=== PATIENT | female | born 1945 | race Caucasian/White ===

== ENCOUNTER → 2018-07-30 12:04 | Outpatient (CLI) | payer MEDICARE, OTHER, SELFPAY ==
[2018-07-30 12:47] LABS: BUN Creatinine Ratio 15.9 (6-22); Blood Urea Nitrogen 27 mg/dL (7-17); Calcium 9.3 mg/dL (8.4-10.2); Carbon Dioxide 25 mmol/L (22-32); Chloride 102 mmol/L (98-107); Cholesterol 187 mg/dL (140-199); Estimated Glomerular Filt Rate 29.4 mL/min (>60); Glucose 104 mg/dL (80-110); HDL Cholesterol 50 mg/dL (40-60); HEMOLYSIS < 15 (0-50); LDL Cholesterol Calculated 116 mg/dL (<100); Potassium 3.9 mmol/L (3.4-5.1); Sodium 141 mmol/L (137-145); Triglycerides 107 mg/dL (35-150); Uric Acid 5.7 mg/dL (2.5-6.2)
== END ==
PROVIDERS: PCP Internal Medicine; Visit Provider Internal Medicine
DX: I10 Essential (primary) hypertension (principal); E78.5 Hyperlipidemia, unspecified; M10.00 Idiopathic gout, unspecified site
CPT/HCPCS: 36415; 80048; 80061; 84550

== ENCOUNTER → 2018-08-06 10:09 | Outpatient (CLI) | payer MEDICARE, OTHER, SELFPAY ==
--- NOTE | 2018-08-06 | DI.RAD.S_ITS ---
PROCEDURE: XR LUMBAR SPINE 2-3V INDICATIONS: Dorsalgia, unspecified TECHNIQUE: 3 views of the lumbar spine were acquired. COMPARISON: [facility], , L-SPINE 2-3 VIEWS, 06/11/2017, 12:19. FINDINGS: Bones: Mild anterior wedging of the L1 vertebral body otherwise the vertebral body heights appear preserved without evidence of acute fracture. Diffuse facet arthropathy and moderate multilevel lumbar disc degeneration. Extensive endplate spurring and sclerosis. Soft tissues: Overlying bowel gas pattern is normal. No suspicious soft tissue calcifications. Scattered vascular calcifications IMPRESSION: Diffuse lumbar disc degeneration and facet arthropathy. No interval change since 09/11/16. Dictated by: Abiodun Thomason M.D. on 08/06/2018 at 11:40 Approved by: Abiodun Thomason M.D. on 08/06/2018 at 11:42
--- NOTE | 2018-08-06 | DI.RAD.S_ITS ---
PROCEDURE: XR THORACIC SPINE 3V INDICATIONS: Dorsalgia, unspecified TECHNIQUE: 3 views of the thoracic spine were acquired. COMPARISON: [facility], , THORACIC SPINE 3 VIEWS, 06/11/2017, 12:19. FINDINGS: Bones: No fractures or dislocations. No suspicious bony lesions. Diffuse endplate degenerative sclerosis and spurring. Levocurvature of the thoracic spine as before. Unchanged appearance of lower thoracic compression fracture. Soft tissues: No paravertebral stripe thickening. IMPRESSION: Overall, no interval change since 06/11/17. Levoscoliosis as before. Dictated by: Abiodun Thomason M.D. on 08/06/2018 at 11:38 Approved by: Abiodun Thomason M.D. on 08/06/2018 at 11:40
--- NOTE | 2018-08-06 | DI.RAD.S_ITS ---
PROCEDURE: XR CERVICAL SPINE 2V OR 3V INDICATIONS: Dorsalgia, unspecified TECHNIQUE: 4 view(s) of the cervical spine were acquired. COMPARISON: [facility], CERVICAL SPINE 2 OR 3 VIEWS, 06/11/2017, 12:19. FINDINGS: Bones: No fractures or dislocations to the C6 level. The lateral masses of C1 appear intact on the odontoid view. No suspicious bony lesions. Grade 1 anterolisthesis of C3 on C4 and C4 and C5. Diffuse facet arthropathy. Moderate narrowing of the C4-C5 and C5-C6 disc spaces. Severe narrowing of the C6-C7 disc space. Straightening of the normal cervical lordosis Soft tissues: No prevertebral soft tissue swelling. Bilateral carotid calcifications. IMPRESSION: Multilevel cervical disc degeneration as detailed above, no interval change since 06/11/17. Dictated by: Abiodun Thomason M.D. on 08/06/2018 at 11:36 Approved by: Abiodun Thomason M.D. on 08/06/2018 at 11:38
== END ==
PROVIDERS: Family Provider Internal Medicine; PCP Internal Medicine; Visit Provider Internal Medicine
DX: M54.9 Dorsalgia, unspecified (principal); M50.321 Other cervical disc degeneration at C4-C5 level; I65.23 Occlusion and stenosis of bilateral carotid arteries; M43.12 Spondylolisthesis, cervical region; M48.02 Spinal stenosis, cervical region; M47.812 Spondylosis without myelopathy or radiculopathy, cervical region; M41.84 Other forms of scoliosis, thoracic region; M51.36 Other intervertebral disc degeneration, lumbar region; M47.816 Spondylosis without myelopathy or radiculopathy, lumbar region
CPT/HCPCS: 72040; 72072; 72100

== ENCOUNTER → 2018-10-09 11:27 | Outpatient (CLI) | payer MEDICARE, OTHER, SELFPAY ==
[2018-10-09 11:33] LABS: Bacteria Urine None Seen
[2018-10-09 12:28] LABS: Hematocrit 41.7 % (36-46)
[2018-10-09 12:45] LABS: BUN Creatinine Ratio 19.4 (6-22); Blood Urea Nitrogen 33 mg/dL (7-17); Calcium 9.4 mg/dL (8.4-10.2); Carbon Dioxide 26 mmol/L (22-32); Chloride 96 mmol/L (98-107); Estimated Glomerular Filt Rate 29.4 mL/min (>60); Glucose 103 mg/dL (80-110); HEMOLYSIS < 15 (0-50); Potassium 3.7 mmol/L (3.4-5.1); Sodium 133 mmol/L (137-145)
[2018-10-09 12:47] LABS: Appearance Urine UA CLEAR; Bilirubin Urine UA NEGATIVE (NEGATIVE); Color Urine UA YELLOW; Glucose Urine UA NEGATIVE (Negative); Ketones Urine UA NEGATIVE (NEGATIVE); Leukocyte Esterase Urine UA NEGATIVE (NEGATIVE); Nitrite Urine UA NEGATIVE (Negative); Occult Blood Urine UA TRACE-INTACT (Negative); Protein Urine UA NEGATIVE (Negative); Specific Gravity Urine UA <=1.005 (1.000-1.035); Urobilinogen Urine UA 0.2 E.U./dL (0.2)
[2018-10-09 12:52] LABS: HEMOLYSIS < 15 (0-50); Iron 65 ug/dL (37-170)
[2018-10-09 13:03] LABS: Percent Iron Saturation 20 % (15-50); Total Iron Binding Capacity 322 ug/dL (265-497); Transferrin 246 mg/dL (206-381)
[2018-10-09 13:07] LABS: Culture Indicated Urine Cult Not Indicated; RBC Urine 0-1/HPF (0-5/HPF); Squamous Epithelial Cell Urine 1-5 /HPF; WBC Urine 0-1/HPF (0-5/HPF)
[2018-10-09 13:17] LABS: Ferritin 31.8 ng/mL (11.1-264)
[2018-10-09 14:56] LABS: Creatinine Urine Random 41.8 mg/dL; Protein (Total) Urine Random 38 mg/dL (0-12)
[2018-10-13 14:08] LABS: Parathyroid Hormone Int 114 pg/mL (14-64)
== END ==
PROVIDERS: Family Provider Internal Medicine; Visit Provider Student in an Organized Health Care Education/Training Program
DX: N05.9 Unspecified nephritic syndrome with unspecified morphologic changes (principal); D50.0 Iron deficiency anemia secondary to blood loss (chronic); D64.9 Anemia, unspecified; N30.00 Acute cystitis without hematuria; R80.9 Proteinuria, unspecified
CPT/HCPCS: 36415; 80048; 81001; 82570; 82728; 83540; 83550; 83970; 84156; 85014; 85018

== ENCOUNTER → 2018-11-05 12:18 | Outpatient (CLI) | payer MEDICARE, OTHER, SELFPAY ==
[2018-11-05 12:31] LABS: Bacteria Urine None Seen; RBC Urine None Seen (0-5/HPF)
[2018-11-05 12:47] LABS: Hematocrit 38.6 % (36-46); Hemoglobin 12.9 g/dL (12.0-16.0)
[2018-11-05 12:51] LABS: Appearance Urine UA CLEAR; Bilirubin Urine UA NEGATIVE (NEGATIVE); Color Urine UA YELLOW; Glucose Urine UA NEGATIVE (Negative); Ketones Urine UA NEGATIVE (NEGATIVE); Leukocyte Esterase Urine UA NEGATIVE (NEGATIVE); Nitrite Urine UA NEGATIVE (Negative); Occult Blood Urine UA NEGATIVE (Negative); Protein Urine UA NEGATIVE (Negative); Specific Gravity Urine UA <=1.005 (1.000-1.035); Urobilinogen Urine UA 0.2 E.U./dL (0.2); pH Urine UA 5.5 (4.5-8.0)
[2018-11-05 12:59] LABS: Culture Indicated Urine Cult Not Indicated; Squamous Epithelial Cell Urine 0-1 /HPF; WBC Urine 0-1/HPF (0-5/HPF)
[2018-11-05 13:00] LABS: BUN Creatinine Ratio 19.5 (6-22); Blood Urea Nitrogen 39 mg/dL (7-17); Calcium 9.2 mg/dL (8.4-10.2); Carbon Dioxide 26 mmol/L (22-32); Chloride 98 mmol/L (98-107); Estimated Glomerular Filt Rate 24.4 mL/min (>60); Glucose 102 mg/dL (80-110); HEMOLYSIS < 15 (0-50); Potassium 4.1 mmol/L (3.4-5.1); Sodium 134 mmol/L (137-145)
[2018-11-05 13:13] LABS: HEMOLYSIS < 15 (0-50); Iron 106 ug/dL (37-170)
[2018-11-05 13:24] LABS: Percent Iron Saturation 34 % (15-50); Total Iron Binding Capacity 311 ug/dL (265-497); Transferrin 235 mg/dL (206-381)
[2018-11-05 15:42] LABS: Creatinine Urine Random 35.1 mg/dL; Protein (Total) Urine Random 18 mg/dL (0-12); Protein Creatinine Ratio Urine 0.51 GRAM/24H
[2018-11-07 20:10] LABS: Parathyroid Hormone Int 57 pg/mL (14-64)
== END ==
PROVIDERS: Family Provider Internal Medicine; PCP Internal Medicine; Visit Provider Student in an Organized Health Care Education/Training Program
DX: N05.9 Unspecified nephritic syndrome with unspecified morphologic changes (principal); D50.0 Iron deficiency anemia secondary to blood loss (chronic); D64.9 Anemia, unspecified; N30.00 Acute cystitis without hematuria; N25.81 Secondary hyperparathyroidism of renal origin; R80.9 Proteinuria, unspecified
CPT/HCPCS: 36415; 80048; 81001; 82570; 82728; 83540; 83550; 83970; 84156; 85014; 85018

== ENCOUNTER → 2019-01-19 12:25 | Outpatient (CLI) | payer MEDICARE, OTHER, SELFPAY ==
[2019-01-19 14:05] LABS: Add Manual Diff / Slide Review NO; Basophils Absolute Auto 0 /uL (0-100); Basophils Percent Auto 0.7 % (0-2); Eosinophils Absolute Auto 100 /uL (0-450); Eosinophils Percent Auto 1.6 % (2-4); Hematocrit 38.1 % (36-46); Hemoglobin 12.9 g/dL (12.0-16.0); Lymphocytes Absolute Auto 1300 /uL (1100-4500); Lymphocytes Percent Auto 20.7 % (25-40); Mean Corpuscular HGB Conc 33.8 % (30-36); Mean Corpuscular Hemoglobin 32.3 PG (26-34); Mean Corpuscular Volume 95.5 fL (80-100); Monocytes Absolute Auto 400 /uL (0-900); Monocytes Percent Auto 6.9 % (3-14); Neutrophils Absolute Auto 4300 /uL (1500-7000); Neutrophils Percent Auto 70.1 % (50-75); Platelet Count 152 X10^3/uL (150-400); Red Blood Cell Count 3.98 X10^6/uL (4.0-5.2); Red Cell Distribution Width 13.7 % (11.6-14.8); White Blood Cell Count 6.1 X10^3/uL (4.5-11.0)
[2019-01-19 15:43] LABS: Albumin 3.9 g/dL (3.5-5.0); BUN Creatinine Ratio 21.9 (6-22); Blood Urea Nitrogen 46 mg/dL (7-17); Calcium 9.2 mg/dL (8.4-10.2); Carbon Dioxide 27 mmol/L (22-32); Chloride 100 mmol/L (98-107); Glucose 103 mg/dL (80-110); HEMOLYSIS < 15 (0-50); Phosphorous 4.2 mg/dL (2.8-4.1); Potassium 3.7 mmol/L (3.4-5.1); Sodium 134 mmol/L (137-145)
== END ==
PROVIDERS: Family Provider Internal Medicine; PCP Internal Medicine; Visit Provider Student in an Organized Health Care Education/Training Program
DX: N18.4 Chronic kidney disease, stage 4 (severe) (principal); D63.1 Anemia in chronic kidney disease; E21.1 Secondary hyperparathyroidism, not elsewhere classified
CPT/HCPCS: 36415; 80069; 82310; 83970; 85025

== ENCOUNTER → 2019-04-21 11:40 | Outpatient (CLI) | payer MEDICARE, OTHER, SELFPAY ==
[2019-04-21 12:18] LABS: Hematocrit 39.5 % (36-46); Hemoglobin 13.5 g/dL (12.0-16.0)
[2019-04-21 12:52] LABS: BUN Creatinine Ratio 17.1 (6-22); Blood Urea Nitrogen 36 mg/dL (7-17); Calcium 9.9 mg/dL (8.4-10.2); Carbon Dioxide 27 mmol/L (22-32); Chloride 103 mmol/L (98-107); Glucose 105 mg/dL (80-110); HEMOLYSIS < 15 (0-50); Potassium 4.4 mmol/L (3.4-5.1); Sodium 140 mmol/L (137-145)
[2019-04-23 14:53] LABS: Parathyroid Hormone Int 42 pg/mL (14-64)
== END ==
PROVIDERS: PCP Internal Medicine; Visit Provider Student in an Organized Health Care Education/Training Program
DX: N05.9 Unspecified nephritic syndrome with unspecified morphologic changes (principal); D64.9 Anemia, unspecified; N25.81 Secondary hyperparathyroidism of renal origin
CPT/HCPCS: 36415; 80048; 83970; 85014; 85018

== ENCOUNTER → 2019-08-30 13:50 | Outpatient (CLI) | payer MEDICARE, OTHER, SELFPAY ==
[2019-08-30 16:06] LABS: BUN Creatinine Ratio 22.1 (6-22); Blood Urea Nitrogen 42 mg/dL (7-17); Calcium 9.9 mg/dL (8.4-10.2); Carbon Dioxide 29 mmol/L (22-32); Chloride 107 mmol/L (98-107); Cholesterol 204 mg/dL (140-199); Estimated Glomerular Filt Rate 25.8 mL/min (>60); Glucose 112 mg/dL (80-110); HDL Cholesterol 50 mg/dL (40-60); HEMOLYSIS < 15 (0-50); LDL Cholesterol Calculated 141 mg/dL (<100); Potassium 4.8 mmol/L (3.4-5.1); Sodium 141 mmol/L (137-145); Triglycerides 65 mg/dL (35-150); Uric Acid 6.7 mg/dL (2.5-6.2)
== END ==
PROVIDERS: PCP Internal Medicine; Visit Provider Internal Medicine
DX: I10 Essential (primary) hypertension (principal); E78.5 Hyperlipidemia, unspecified; M10.00 Idiopathic gout, unspecified site
CPT/HCPCS: 36415; 80048; 80061; 84550

== ENCOUNTER → 2019-09-09 09:11 | Outpatient (CLI) | payer MEDICARE, OTHER, SELFPAY ==
--- NOTE | 2019-09-09 | DI.ECHO.S_ITS ---
[facility]---------+ [facility] +---------+ : : [address] : : : : [id number] : : : : Phone: [phone] Echocardiogram Report + + :Name: MARISSA OWENS Study Date: 09/09/2019 Height: 67 in : :[facility] Weight: 180 lb : : Gender: Female BSA: 1.9 m2 : :: 1945 Age: 74 yrs BP: 166/82 mmHg: :Reason For Study: SOB : :Ordering Physician: Kathy JosephPerformed By: Sathya Ferrari : :Referring: KATHY JOSEPH : + + Interpretation Summary The septum is moderately thickened, measuring 1.6 cm. Left ventricular wall motion is normal. The left ventricular ejection fraction is normal. The right ventricle is normal in size and function. Pulmonary artery pressures cannot be estimated because of the lack of a measurable TR jet velocity. No hemodynamically significant valvular abnormalities. Patient was hypertensive during the exam. Procedure: A two-dimensional transthoracic echocardiogram with color flow and Doppler was performed. The study quality was technically adequate. There is no prior echocardiogram noted for this patient. The patient was in normal sinus rhythm during the exam. Left Ventricle: The left ventricle is normal in size. Proximal septal thickening is noted. The ejection fraction is estimated to be 60-65%. The left ventricular ejection fraction is normal. Left ventricular wall motion is normal. Diastolic parameters suggest probable normal left ventricular diastolic function and normal filling pressures. Right Ventricle: The right ventricle is normal in size and function. TAPSE 2.5 cm. Atria: The left atrial size is normal. Right atrial size is normal. There is no Doppler evidence for an interatrial shunt. Mitral Valve: The mitral valve is normal in structure and function. There is trace mitral regurgitation. Aortic Valve: There is mild aortic valve sclerosis. The aortic valve is trileaflet. The aortic valve opens well. There is discrete nodular thickening of the non- coronary cusp. There is no aortic valve stenosis. No aortic regurgitation is present. Tricuspid Valve: The tricuspid valve is normal in structure and function. No tricuspid regurgitation. Pulmonary artery pressures cannot be estimated because of the lack of a measurable TR jet velocity. Pulmonic Valve: The pulmonic valve is not well visualized. There is trace pulmonic regurgitation. Great Vessels: The aortic root is normal size. The dimensions of the ascending aorta are normal. The pulmonary artery is normal size. The IVC is of normal diameter and collapses greater than 50% with a sniff. This suggests a low right atrial pressure of 3 mm Hg. Pericardium/ Pleura There is no pericardial effusion. There is no pleural effusion. MMode/2D Measurements & Calculations LVIDd: 3.4 cm LVOT diam: 2.1 cm LVIDs: 2.4 cm Ao root diam: 3.1 cm FS: 29.8 % EPSS: 0.37 cm IVSd: 1.6 cm LVPWd: 1.2 cm LV vidal. diameter/BSA (cm/m^2): 1.7 LV sys. diameter/BSA (cm/m^2): 1.2 LA A2 area: 20.2 cm2 RA long axis: 4.9 cm LA A4 area: 19.0 cm2 RA area: 13.2 cm2 LA length (vol): 5.3 cm RA vol: 30.0 ml LA vol: 61.6 ml RA : 15.5 ml/m2 LA vol index: 31.8 ml/m2 TAPSE: 2.5 cm Doppler Measurements & Calculations Ao V2 max: 139.6 cm/sec LVOT Max Federico: 135.3 cm/sec Ao V2 mean: 106.4 cm/sec LV V1 max P.3 mmHg Ao max P.8 mmHg LV V1 VTI: 29.9 cm Ao mean P.9 mmHg MARY(I,D): 3.0 cm2 Ao V2 VTI: 36.0 cm MARY(V,D): 3.5 cm2 sev ratio: 0.83 MARY indexed to BSA (cm^2/m^2): 1.5 MV E max federico: 85.1 cm/sec PA V2 max: 50.5 cm/sec MV A max federioc: 60.5 cm/sec PA V2 mean: 36.4 cm/sec MV E/A: 1.4 PA mean P.61 mmHg Med Peak E' Federico: 6.9 cm/sec PA Accel Time: 0.13 sec E/E' med: 12.3 Lat Peak E' Federico: 6.6 cm/sec E/E' lat: 12.9 E/e' average: 12.6 MV dec time: 0.28 sec SV(LVOT): 107.4 ml Electronically signed by: Ministerio Hanson M.D. on Reading Physician:09/09/2019 06:56 PM
== END ==
PROVIDERS: PCP Internal Medicine; Visit Provider Internal Medicine
DX: I35.8 Other nonrheumatic aortic valve disorders (principal); R06.02 Shortness of breath
CPT/HCPCS: 93306

== ENCOUNTER → 2019-10-22 11:49 | Outpatient (CLI) | payer MEDICARE, OTHER, SELFPAY ==
[2019-10-22 12:43] LABS: Hematocrit 40.3 % (36-46); Hemoglobin 13.8 g/dL (12.0-16.0)
[2019-10-22 13:15] LABS: BUN Creatinine Ratio 17.9 (6-22); Blood Urea Nitrogen 34 mg/dL (7-17); Calcium 10.1 mg/dL (8.4-10.2); Carbon Dioxide 28 mmol/L (22-32); Chloride 106 mmol/L (98-107); Estimated Glomerular Filt Rate 25.8 mL/min (>60); Glucose 118 mg/dL (80-110); HEMOLYSIS < 15 (0-50); Potassium 4.5 mmol/L (3.4-5.1); Sodium 142 mmol/L (137-145)
[2019-10-26 15:37] LABS: Parathyroid Hormone Int 19 pg/mL (14-64)
== END ==
PROVIDERS: PCP Internal Medicine; Referring Provider Student in an Organized Health Care Education/Training Program; Visit Provider Student in an Organized Health Care Education/Training Program
DX: N05.9 Unspecified nephritic syndrome with unspecified morphologic changes (principal); D64.9 Anemia, unspecified; N25.81 Secondary hyperparathyroidism of renal origin
CPT/HCPCS: 36415; 80048; 83970; 85014; 85018

== ENCOUNTER → 2020-06-14 13:34 | Outpatient (CLI) | payer MEDICARE, OTHER, SELFPAY ==
[2020-06-14 14:40] LABS: Hematocrit 39.2 % (36-46); Hemoglobin 12.8 g/dL (12.0-16.0)
[2020-06-14 15:22] LABS: BUN Creatinine Ratio 15.7 (6-22); Blood Urea Nitrogen 30 mg/dL (7-17); Calcium 10.2 mg/dL (8.4-10.2); Carbon Dioxide 28 mmol/L (22-32); Chloride 105 mmol/L (98-107); Estimated Glomerular Filt Rate 25.5 mL/min (>60); Glucose 110 mg/dL (80-110); HEMOLYSIS < 15 (0-50); Potassium 4.7 mmol/L (3.4-5.1); Sodium 139 mmol/L (137-145)
[2020-06-15 08:12] LABS: Parathyroid Hormone Int 29 pg/mL (15-65)
== END ==
PROVIDERS: PCP Internal Medicine; Referring Provider Student in an Organized Health Care Education/Training Program; Visit Provider Student in an Organized Health Care Education/Training Program
DX: N05.9 Unspecified nephritic syndrome with unspecified morphologic changes (principal); D64.9 Anemia, unspecified; N25.81 Secondary hyperparathyroidism of renal origin
CPT/HCPCS: 36415; 80048; 83970; 85014; 85018

== ENCOUNTER → 2021-01-09 14:16 | Outpatient (CLI) | payer MEDICARE, OTHER, SELFPAY ==
[2021-01-09 15:52] LABS: Hematocrit 41.6 % (36-46); Hemoglobin 13.9 g/dL (12.0-16.0)
[2021-01-09 16:06] LABS: BUN Creatinine Ratio 13.3 (6-22); Blood Urea Nitrogen 31 mg/dL (7-17); Calcium 9.8 mg/dL (8.4-10.2); Carbon Dioxide 28 mmol/L (22-32); Chloride 104 mmol/L (98-107); Estimated Glomerular Filt Rate 20.3 mL/min (>60); Glucose 98 mg/dL (80-110); HEMOLYSIS < 15 (0-50); Sodium 137 mmol/L (137-145)
[2021-01-10 06:10] LABS: Parathyroid Hormone Int 81 pg/mL (15-65)
== END ==
PROVIDERS: PCP Internal Medicine; Referring Provider Student in an Organized Health Care Education/Training Program; Visit Provider Student in an Organized Health Care Education/Training Program
DX: N25.81 Secondary hyperparathyroidism of renal origin (principal)
CPT/HCPCS: 36415; 80048; 83970; 85014; 85018

== ENCOUNTER → 2021-05-08 14:09 | Outpatient (CLI) | payer MEDICARE, OTHER, SELFPAY ==
[2021-05-08 15:26] LABS: Hematocrit 40.4 % (36-46); Hemoglobin 13.5 g/dL (12.0-16.0)
[2021-05-08 15:47] LABS: BUN Creatinine Ratio 17.4 (6-22); Blood Urea Nitrogen 38 mg/dL (7-17); Calcium 9.9 mg/dL (8.4-10.2); Carbon Dioxide 31 mmol/L (22-32); Chloride 106 mmol/L (98-107); Estimated Glomerular Filt Rate 21.9 mL/min (>60); Glucose 102 mg/dL (80-110); HEMOLYSIS < 15 (0-50); Potassium 4.2 mmol/L (3.4-5.1); Sodium 142 mmol/L (137-145)
[2021-05-09 05:57] LABS: Parathyroid Hormone Int 26 pg/mL (15-65)
== END ==
PROVIDERS: PCP Internal Medicine; Referring Provider Student in an Organized Health Care Education/Training Program; Visit Provider Student in an Organized Health Care Education/Training Program
DX: N25.9 Disorder resulting from impaired renal tubular function, unspecified (principal); D64.9 Anemia, unspecified; N25.81 Secondary hyperparathyroidism of renal origin; M10.00 Idiopathic gout, unspecified site
CPT/HCPCS: 36415; 80048; 83970; 84550; 85014; 85018

== ENCOUNTER → 2021-11-05 14:03 | Outpatient (CLI) | payer MEDICARE, OTHER, SELFPAY ==
[2021-11-05 14:50] LABS: Hemoglobin 13.2 g/dL (12.0-16.0)
[2021-11-05 15:18] LABS: BUN Creatinine Ratio 16.9 (6-22); Blood Urea Nitrogen 38 mg/dL (7-17); Calcium 9.9 mg/dL (8.4-10.2); Carbon Dioxide 26 mmol/L (22-32); Chloride 105 mmol/L (98-107); Estimated Glomerular Filt Rate 21.1 mL/min (>60); Glucose 105 mg/dL (80-110); HEMOLYSIS < 15 (0-50); Potassium 4.7 mmol/L (3.4-5.1); Sodium 138 mmol/L (137-145)
[2021-11-06 10:58] LABS: Parathyroid Hormone Int 33 pg/mL (15-65)
== END ==
PROVIDERS: PCP Internal Medicine; Referring Provider Student in an Organized Health Care Education/Training Program; Visit Provider Student in an Organized Health Care Education/Training Program
DX: N05.9 Unspecified nephritic syndrome with unspecified morphologic changes (principal); D64.9 Anemia, unspecified; N25.81 Secondary hyperparathyroidism of renal origin; M10.00 Idiopathic gout, unspecified site
CPT/HCPCS: 36415; 80048; 83970; 84550; 85014; 85018

== ENCOUNTER → 2022-06-05 14:53 | Outpatient (CLI) | payer MEDICARE, OTHER, SELFPAY ==
[2022-06-05 17:06] LABS: Hematocrit 36.2 % (36-46); Hemoglobin 12.3 g/dL (12.0-16.0)
[2022-06-05 17:18] LABS: BUN Creatinine Ratio 20.5 (6-22); Blood Urea Nitrogen 49 mg/dL (7-17); Calcium 9.2 mg/dL (8.4-10.2); Carbon Dioxide 27 mmol/L (22-32); Chloride 101 mmol/L (98-107); Estimated Glomerular Filt Rate 20 mL/min (>60); Glucose 91 mg/dL (80-110); HEMOLYSIS < 15 (0-50); Potassium 5.2 mmol/L (3.4-5.1); Sodium 135 mmol/L (137-145)
[2022-06-05 17:45] LABS: Hemoglobin A1C% w Est Avg Glu 5.3 % (4.0-6.0)
[2022-06-05 17:48] LABS: Creatinine Urine Random 90.9 mg/dL; Protein (Total) Urine Random 13 mg/dL (0-12); Protein Creatinine Ratio Urine 0.14 GRAM/24H
[2022-06-06 10:01] LABS: Parathyroid Hormone Int 41 pg/mL (15-65)
== END ==
PROVIDERS: PCP Internal Medicine; Referring Provider Student in an Organized Health Care Education/Training Program; Visit Provider Student in an Organized Health Care Education/Training Program
DX: E11.9 Type 2 diabetes mellitus without complications (principal); N05.9 Unspecified nephritic syndrome with unspecified morphologic changes; D64.9 Anemia, unspecified; N25.81 Secondary hyperparathyroidism of renal origin; R80.9 Proteinuria, unspecified
CPT/HCPCS: 36415; 80048; 82570; 83036; 83970; 84156; 85014; 85018

== ENCOUNTER → 2022-06-18 14:24 | Outpatient (CLI) | payer MEDICARE, OTHER, SELFPAY ==
[2022-06-18 16:01] LABS: HEMOLYSIS < 15 (0-50)
== END ==
PROVIDERS: PCP Internal Medicine; Referring Provider Student in an Organized Health Care Education/Training Program; Visit Provider Student in an Organized Health Care Education/Training Program
DX: E87.5 Hyperkalemia (principal)
CPT/HCPCS: 36415; 84132

== ENCOUNTER → 2022-09-30 14:37 | Outpatient (CLI) | payer MEDICARE, OTHER, SELFPAY ==
[2022-09-30 15:10] LABS: Hematocrit 36.5 % (36-46)
[2022-09-30 15:27] LABS: Blood Urea Nitrogen 36 mg/dL (7-17); Calcium 9.8 mg/dL (8.4-10.2); Carbon Dioxide 26 mmol/L (22-32); Chloride 106 mmol/L (98-107); Estimated Glomerular Filt Rate 19 mL/min (>60); Glucose 92 mg/dL (80-110); HEMOLYSIS < 15 (0-50); Potassium 4.2 mmol/L (3.4-5.1); Sodium 139 mmol/L (137-145)
[2022-09-30 16:17] LABS: Creatinine Urine Random 168.2 mg/dL; Protein (Total) Urine Random 30 mg/dL (0-12); Protein Creatinine Ratio Urine 0.17 GRAM/24H
[2022-10-03 07:28] LABS: Parathyroid Hormone Int 21 pg/mL (15-65)
== END ==
PROVIDERS: PCP Internal Medicine; Referring Provider Student in an Organized Health Care Education/Training Program; Visit Provider Student in an Organized Health Care Education/Training Program
DX: N05.9 Unspecified nephritic syndrome with unspecified morphologic changes (principal); D64.9 Anemia, unspecified; N25.81 Secondary hyperparathyroidism of renal origin; R80.9 Proteinuria, unspecified
CPT/HCPCS: 36415; 80048; 82570; 83970; 84156; 85014; 85018

== ENCOUNTER 2023-01-27 14:07 | Emergency (ER) | payer MEDICARE, OTHER, SELFPAY ==
[2023-01-27] VITALS (17 sets, daily range): BP systolic 147–234; BP diastolic 70–105; PULSE 72–79; RESP 10–23; O2SAT 93–99
--- NOTE | 2023-01-27 14:18 | DI.RAD.S_ITS ---
PROCEDURE: XR CHEST 1V INDICATIONS: chest pain TECHNIQUE: One view of the chest was acquired. COMPARISON: [facility], CHEST 2 VIEW, 04/18/2015, 16:51. [facility], CHEST 2 VIEW, 04/20/2015, 8:51. FINDINGS: Surgical changes and devices: None. Lungs and pleura: There is a irregular density in the right apex.. No pleural effusions or pneumothorax. Mediastinum: Mediastinal contours appear normal. Heart size is normal. Bones and chest wall: No suspicious bony lesions. Overlying soft tissues appear unremarkable. IMPRESSION: 1. An irregular nodular density in right apex suspicious for pneumonia. Recommend a short-term follow-up chest x-ray to resolution. Dictated by: Rocio Stephenson M.D. on 01/27/2023 at 15:00 Approved by: Rocio Stephenson M.D. on 01/27/2023 at 15:03
--- NOTE | 2023-01-27 14:22 | PC.NURSE ---
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 Pt recently reports SOB with exertion and standing for the past day. LS clear bilaterally per respiratory care therapist Brian. BEFAST negative, however, pt is a little slow to respond to questions, but does answer them appropriately.
[2023-01-27 14:25] LABS: Add Manual Diff / Slide Review NO; Basophils Absolute Auto 100 /uL (0-100); Basophils Percent Auto 0.8 % (0-2); Eosinophils Absolute Auto 200 /uL (0-450); Eosinophils Percent Auto 1.7 % (2-4); Hematocrit 33.9 % (36-46); Hemoglobin 11.4 g/dL (12.0-16.0); Lymphocytes Absolute Auto 1100 /uL (1100-4500); Lymphocytes Percent Auto 12.2 % (25-40); Mean Corpuscular HGB Conc 33.8 % (30-36); Mean Corpuscular Hemoglobin 31.9 PG (26-34); Mean Corpuscular Volume 94.5 fL (80-100); Monocytes Absolute Auto 500 /uL (0-900); Monocytes Percent Auto 5.1 % (3-14); Neutrophils Absolute Auto 7100 /uL (1500-7000); Neutrophils Percent Auto 80.2 % (50-75); Platelet Count 198 X10^3/uL (150-400); Red Blood Cell Count 3.58 X10^6/uL (4.0-5.2); Red Cell Distribution Width 15.3 % (11.6-14.8); White Blood Cell Count 8.8 X10^3/uL (4.5-11.0)
[2023-01-27 14:28] LABS: PTT Partial Thromboplastin Tim 32 SECONDS (26-36)
[2023-01-27 14:30] LABS: Alanine Aminotransferase 15 IU/L (<35); Albumin 3.6 g/dL (3.5-5.0); Albumin Globulin Ratio 1.2 (1.0-2.8); Alkaline Phosphatase 61 U/L (38-126); Aspartate Aminotransferase 22 IU/L (14-36); BUN Creatinine Ratio 12.8 (6-22); Bilirubin Total 0.6 mg/dL (0.2-1.3); Blood Urea Nitrogen 31 mg/dL (7-17); Calcium 9.4 mg/dL (8.4-10.2); Carbon Dioxide 25 mmol/L (22-32); Chloride 106 mmol/L (98-107); Creatine Kinase < 20 U/L (30-135); Estimated Glomerular Filt Rate 20 mL/min (>60); Globulin 3.1 g/dL (1.7-4.1); Glucose 135 mg/dL (80-110); HEMOLYSIS 59 (0-50); Lipase 179 U/L (23-300); Potassium 4.5 mmol/L (3.4-5.1); Sodium 137 mmol/L (137-145); Total Protein 6.7 g/dL (6.3-8.2)
--- NOTE | 2023-01-27 14:42 | ED.SYNCOPE ---
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 She reports that she was not burning last week going to the eye doctor when she passed out at that time she was seen evaluated [facility] and [facility]. [facility] and was hypotensive with EMS blood pressure has improved significantly with IV fluids glucose was within normal limits. She denies any numbness tingling or weakness. She denies any chest pain palpitations or shortness of breath. She reports that she has everything lined up to with dignity when she meets criteria. She reports that she is a DNR she wants nothing to do or be resuscitated. She is not had any fever or chills. She makes little urine but still urinates. She reports that she is waiting until she is stage 5 kidney disease before she is able to qualify for with dignity. She is not doing chemoradiation for her cancer she wants no treatment. She overall appears well. Related Data Home Medications Medication Instructions Recorded Confirmed CHOLECALCIFEROL (VITAMIN D) 4,000 iu PO Q DAY ##0 02/20/11 ASPIRIN (Aspir-Low) 81 mg PO BID ##0 10/18/11 Previous Rx's Medication Instructions Recorded losartan 100 mg tablet 100 mg PO Q DAY ##30 02/17/12 Allergies Allergy/AdvReac Type Severity Reaction Status Date / Time adhesive [ADHESIVE] Allergy Severe BLISTERS Verified 01/27/23 14:09 AND RASH clindamycin [CLINDAMYCIN] Allergy Severe DIFFICULTY Verified 01/27/23 14:09 SWALLOWING NSAIDS (Non-Steroidal Allergy Severe HIVES Verified 01/27/23 14:09 Anti-Inflamma [NSAIDS (NON-STEROIDAL ANTI-INFLAMMA] Sulfa (Sulfonamide Allergy Severe HIVES Verified 01/27/23 14:09 Antibiotics) [SULFA (SULFONAMIDE ANTIBIOTICS)] lisinopril [LISINOPRIL] Allergy Mild ITCH, COUGH Verified 01/27/23 14:09 erythromycin base AdvReac Mild GI UPSET Verified 01/27/23 14:09 [ERYTHROMYCIN BASE] Review of Systems Review of Systems ROS Unobtainable: All systems reviewed & are unremarkable except as noted in HPI and below Patient History Social History Smoking Status: Never smoker Smoking Status: Never smoker Substance Use Type: does not use Exam Initial Vital Signs Initial Vital Signs: Vital Signs Pulse Rate 77 01/27/23 14:09 Respiratory Rate 16 01/27/23 14:09 Blood Pressure 181/87 H 01/27/23 14:09 Pulse Oximetry 95 01/27/23 14:09 Oxygen Delivery Method Room Air 01/27/23 14:09 GENERAL: Alert pleasant 77-year-old female and in no acute distress. HEENT: Head atraumatic,EOMI, pupils reactive, face symmetric, moist mucous membranes CARDIOVASCULAR: Regular rate and rhythm without murmurs, rubs or gallops. RESPIRATORY: Breath sounds equal bilaterally, no wheezes rales or rhonchi. ABDOMEN: Soft, nontender. Normoactive bowel sounds all 4 quadrants. No guarding or rebound. EXTREMITIES: Normal range of motion, no clubbing or edema. Neurovascularly intact NEUROLOGICAL: Alert and oriented x4.Normal gait and speech. Cranial nerves II through XII grossly intact. Good [id number], good zaom-[id number], strength equal bilaterally, no dysarthria or aphasia, sensation in tact to soft touch bilaterally, no visual changes, no facial droop SKIN: Warm, dry, no laceration, no petechiae, no rashes or lesions. Scores NIH Stroke Scale Level of Conciousness: Alert, keenly responsive Ask month/age: Answers both questions correctly. Open/close eyes, close hand: Performs both tasks correctly Best gaze horizontal: Normal Visual corrales: No visual loss Facial palsy: Normal symetrical movement Left arm drift: No drift for full 10 sec Right arm drift: No drift for full 10 sec Left leg drift: No drift for full 5 sec Right leg drift: No drift for full 5 sec Limb ataxia: Absent Sensory on face/arms/legs: Normal, no sensory loss Best language: No aphasia, normal Dysarthria: Normal Extinction or inattention: No abnormality Total NIH Stroke scale score: 0 Course Orders Ordered: ED Orders 01/27/23 14:09 Complete Blood Count AUTO DIFF Stat Comprehensive Metabolic Panel Stat ETOH [Ethanol (ETOH)] Stat Lipase Stat Magnesium Stat PTT Partial Thromboplastin Nico Stat Prothrombin Time INR Stat Troponin & CK Cardiac Panel Stat 01/27/23 14:18 XR chest 1V Stat EKG-12 Lead Stat 01/27/23 14:43 CT head/brain wo con Stat Discontinued Medications Sodium Chloride (Normal Saline 0.9%) 1,000 mls @ 1,000 mls/hr IV BOLUS ONE Stop: 01/27/23 15:44 Last Infusion: 01/27/23 15:55 Dose: 0 mls/hr Documented By: Admin: 01/27/23 14:47 Dose: 1,000 mls/hr Documented By: CHARLINE Labetalol HCl (Labetalol 20 Mg/4 Ml Syringe) 10 mg IV NOW ONE; Protocol Stop: 01/27/23 16:19 Last Admin: 01/27/23 16:36 Dose: 10 mg Documented By: CHARLINE Ondansetron HCl (Ondansetron 4 Mg/2 Ml Inj) 4 mg IV NOW ONE Stop: 01/27/23 16:01 Last Admin: 01/27/23 16:36 Dose: 4 mg Documented By: CHARLINE Vital Signs Vital signs: Vital Signs - 8 hr 01/27/23 14:09 01/27/23 14:10 01/27/23 14:12 Pulse Rate 77 79 Respiratory Rate 16 Blood Pressure 181/87 H 181/87 H Pulse Oximetry 95 Oxygen Delivery Method Room Air 01/27/23 14:12 01/27/23 14:30 01/27/23 14:38 Pulse Rate 77 78 Respiratory Rate Blood Pressure 147/80 H Pulse Oximetry 96 Oxygen Delivery Method 01/27/23 14:38 01/27/23 16:36 01/27/23 16:54 Pulse Rate 74 74 76 Respiratory Rate 13 18 Blood Pressure 219/102 H 186/81 H Pulse Oximetry 98 97 Oxygen Delivery Method Room Air Room Air 01/27/23 15:03 01/27/23 15:04 01/27/23 15:04 Pulse Rate 75 76 Respiratory Rate 20 23 Blood Pressure 148/70 H Pulse Oximetry 93 97 Oxygen Delivery Method 01/27/23 15:30 01/27/23 15:31 01/27/23 15:31 Pulse Rate 73 72 Respiratory Rate 13 14 Blood Pressure 196/82 H Pulse Oximetry 98 98 Oxygen Delivery Method 01/27/23 15:50 01/27/23 15:50 01/27/23 16:00 Pulse Rate 76 Respiratory Rate 17 Blood Pressure 234/97 H 226/105 H Pulse Oximetry 98 Oxygen Delivery Method 01/27/23 16:00 01/27/23 16:03 01/27/23 16:03 Pulse Rate 76 76 Respiratory Rate 15 10 L Blood Pressure 221/105 H Pulse Oximetry 99 98 Oxygen Delivery Method 01/27/23 16:15 01/27/23 16:15 01/27/23 16:30 Pulse Rate 72 75 Respiratory Rate 18 23 Blood Pressure 215/99 H Pulse Oximetry 98 97 Oxygen Delivery Method Room Air 01/27/23 18:05 Pulse Rate 76 Respiratory Rate Blood Pressure 195/92 H Pulse Oximetry 98 Oxygen Delivery Method Room Air MDM - Syncope Lab Data 01/27/23 14:09 01/27/23 14:09 Labs: Lab Results 01/27/23 01/27/23 01/27/23 Range/Units 14:09 14:09 14:09 WBC 8.8 (4.5-11.0) X10^3/uL RBC 3.58 L (4.0-5.2) X10^6/uL Hgb 11.4 L (12.0-16.0) g/dL Hct 33.9 L (36-46) % MCV 94.5 (80-100) fL MCH 31.9 (26-34) PG MCHC 33.8 (30-36) % RDW 15.3 H (11.6-14.8) % Plt Count 198 (150-400) X10^3/uL Neut % (Auto) 80.2 H (50-75) % Lymph % (Auto) 12.2 L (25-40) % Dooly % (Auto) 5.1 (3-14) % Eos % (Auto) 1.7 L (2-4) % Baso % (Auto) 0.8 (0-2) % Neut # (Auto) 7100 H (5734-2160) /uL Lymph # (Auto) 1100 (8709-5948) /uL Dooly # (Auto) 500 (0-900) /uL Eos # (Auto) 200 (0-450) /uL Baso # (Auto) 100 (0-100) /uL PT 11.0 (10.1-12.7) SECONDS INR 1.0 (0.9-1.3) APTT 32 (26-36) SECONDS Sodium 137 (137-145) mmol/L Potassium 4.5 (3.4-5.1) mmol/L Chloride 106 (98-107) mmol/L Carbon Dioxide 25 (22-32) mmol/L BUN 31 H (7-17) mg/dL Creatinine 2.43 H (0.52-1.04) mg/dL Estimated GFR 20 L (>60) mL/min BUN/Creatinine Ratio 12.8 (6-22) Glucose 135 H (80-110) mg/dL Calcium 9.4 (8.4-10.2) mg/dL Magnesium 2.0 (1.6-2.3) mg/dL Total Bilirubin 0.6 (0.2-1.3) mg/dL AST 22 (14-36) IU/L ALT 15 (<35) IU/L Alkaline Phosphatase 61 (38-126) U/L Total Creatine Kinase < 20 L (30-135) U/L CK-MB (CK-2) TNP CK-MB (CK-2) Rel Index TNP Troponin I < 0.012 (0.01-0.034) ng/mL Total Protein 6.7 (6.3-8.2) g/dL Albumin 3.6 (3.5-5.0) g/dL Globulin 3.1 (1.7-4.1) g/dL Albumin/Globulin Ratio 1.2 (1.0-2.8) Lipase 179 (23-300) U/L Ethyl Alcohol ( - 10) mg/dL 01/27/23 Range/Units 14:09 WBC (4.5-11.0) X10^3/uL RBC (4.0-5.2) X10^6/uL Hgb (12.0-16.0) g/dL Hct (36-46) % MCV (80-100) fL MCH (26-34) PG MCHC (30-36) % RDW (11.6-14.8) % Plt Count (150-400) X10^3/uL Neut % (Auto) (50-75) % Lymph % (Auto) (25-40) % Dooly % (Auto) (3-14) % Eos % (Auto) (2-4) % Baso % (Auto) (0-2) % Neut # (Auto) (6652-8225) /uL Lymph # (Auto) (8368-0045) /uL Dooly # (Auto) (0-900) /uL Eos # (Auto) (0-450) /uL Baso # (Auto) (0-100) /uL PT (10.1-12.7) SECONDS INR (0.9-1.3) APTT (26-36) SECONDS Sodium (137-145) mmol/L Potassium (3.4-5.1) mmol/L Chloride (98-107) mmol/L Carbon Dioxide (22-32) mmol/L BUN (7-17) mg/dL Creatinine (0.52-1.04) mg/dL Estimated GFR (>60) mL/min BUN/Creatinine Ratio (6-22) Glucose (80-110) mg/dL Calcium (8.4-10.2) mg/dL Magnesium (1.6-2.3) mg/dL Total Bilirubin (0.2-1.3) mg/dL AST (14-36) IU/L ALT (<35) IU/L Alkaline Phosphatase (38-126) U/L Total Creatine Kinase (30-135) U/L CK-MB (CK-2) CK-MB (CK-2) Rel Index Troponin I (0.01-0.034) ng/mL Total Protein (6.3-8.2) g/dL Albumin (3.5-5.0) g/dL Globulin (1.7-4.1) g/dL Albumin/Globulin Ratio (1.0-2.8) Lipase (23-300) U/L Ethyl Alcohol < 10 ( - 10) mg/dL Imaging Data CT scan - head: Radiologist's Impression: PROCEDURE:? CT HEAD/BRAIN WO CON ? INDICATIONS:? syncope with cancer ? TECHNIQUE:? Noncontrast 4.5 mm thick angled axial sections acquired from the foramen magnum to the vertex, with coronal and sagittal reformats.? For radiation dose reduction, the following was used:? automated exposure control, adjustment of mA and/or kV according to patient size.? ? COMPARISON:? [facility], MR, BRAIN WITHOUT CONTRAST, 09/13/2014, 17:37.? [facility], MR, ANGIO HEAD WITHOUT CONTRAST, 09/13/2014, 17:28. ? FINDINGS:? Image quality:? Excellent.? ? CSF spaces:? Basal cisterns are patent.? No extra-axial fluid collections.? The ventricles are symmetric in size and shape.? ? Brain:? No intracranial bleeds or masses.? There is cerebral volume loss for age, with resultant ventricular and sulcal prominence.? There are [id number] periventricular and deep white matter chronic small vessel ischemic changes.? There is intracranial internal carotid artery atherosclerosis.? ? Skull and face:? Calvarium and visualized facial bones appear intact, without suspicious lesions.? ? Sinuses:? Visualized sinuses and mastoids are clear.? ? IMPRESSION:? ? 1. No acute intracranial abnormalities. ? 2. Cerebral volume loss and chronic microvascular ischemic changes. ? ? ? Dictated by: Rocio Stephenson M.D. on 01/27/2023 at 15:14? Chest x-ray: Radiologist's Impression: PROCEDURE:? XR CHEST 1V ? INDICATIONS:? chest pain ? TECHNIQUE:? One view of the chest was acquired.? ? COMPARISON:? [facility], CHEST 2 VIEW, 04/18/2015, 16:51.? [facility], CHEST 2 VIEW, 04/20/2015, 8:51. ? FINDINGS:? ? Surgical changes and devices:? None.? ? Lungs and pleura:? There is a irregular density in the right apex..? No pleural effusions or pneumothorax.? ? Mediastinum:? Mediastinal contours appear normal.? Heart size is normal.? ? Bones and chest wall:? No suspicious bony lesions.? Overlying soft tissues appear unremarkable.? ? IMPRESSION:? ? 1. An irregular nodular density in right apex suspicious for pneumonia.? Recommend a short-term follow-up chest x-ray to resolution.? ? ? Dictated by: Rocio Stephenson M.D. on 01/27/2023 at 15:00 ? 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 Blood pressure is mildly elevated and rises in the emergency department but no real evidence of end-organ damage. Head CT was negative for any sort of metastasis. Held off on full body CT scanning patient reports she went it want to do anything with the findings, not a great candidate for CT with IV contrast due to low GFR. She declined catheterization to rule out UTI she is not febrile or septic. Long discussion with her about driving she has had 2 syncopal episodes in 1 week I strongly recommend that she not drive. Blood work is noted to be slightly increasing while she is here she is takes labetalol at home she is given a dose of IV labetalol which helped improve her blood pressure. At this time patient does not want any further treatment I do not see any need for any further workup. Discharge Plan Departure Patient Disposition: Home Clinical Impression: Syncope Instructions: DI for Syncope in Adults (Fainting) Activity Restrictions/Additional Instructions: DO NOT DRIVE, YOU HAVE PASSED OUT TWICE WE DO NOT KNOW WHY *You have been diagnosed with syncope *What to do: I do recommend further workup Holter monitor or other imaging. This was offered today. *Continue to take medications as directed *Follow up with your primary care provider in 2-3 days or call [phone] *Return to ER if you should have recurrent episode of passing out fever chills confusion chest pain palpitations or any new, worsening or concerning symptoms Prescriptions: No Action CHOLECALCIFEROL (VITAMIN D) 4,000 iu PO Q DAY Qty: 0 ASPIRIN (Aspir-Low) 81 mg PO BID Qty: 0 losartan 100 MG tablet 100 mg PO Q DAY Qty: 30 2RF Referrals: Aida Lacey MD [Primary Care Provider] - Stand Alone Forms: Patient Portal/API
--- NOTE | 2023-01-27 14:43 | DI.CT.S_ITS ---
PROCEDURE: CT HEAD/BRAIN WO CON INDICATIONS: syncope with cancer TECHNIQUE: Noncontrast 4.5 mm thick angled axial sections acquired from the foramen magnum to the vertex, with coronal and sagittal reformats. For radiation dose reduction, the following was used: automated exposure control, adjustment of mA and/or kV according to patient size. COMPARISON: [facility], MR, BRAIN WITHOUT CONTRAST, 09/13/2014, 17:37. [facility], MR, ANGIO HEAD WITHOUT CONTRAST, 09/13/2014, 17:28. FINDINGS: Image quality: Excellent. CSF spaces: Basal cisterns are patent. No extra-axial fluid collections. The ventricles are symmetric in size and shape. Brain: No intracranial bleeds or masses. There is cerebral volume loss for age, with resultant ventricular and sulcal prominence. There are [id number] periventricular and deep white matter chronic small vessel ischemic changes. There is intracranial internal carotid artery atherosclerosis. Skull and face: Calvarium and visualized facial bones appear intact, without suspicious lesions. Sinuses: Visualized sinuses and mastoids are clear. IMPRESSION: 1. No acute intracranial abnormalities. 2. Cerebral volume loss and chronic microvascular ischemic changes. Dictated by: Rocio Stephenson M.D. on 01/27/2023 at 15:14 Approved by: Rocio Stephenson M.D. on 01/27/2023 at 15:16
[2023-01-27 14:46] LABS: Troponin I < 0.012 ng/mL (0.01-0.034)
[2023-01-27] MEDS: SODIUM CHLORIDE 0.9% 1,000 ML 1000 ML IV (14:47)
[2023-01-27 14:59] LABS: Ethanol (ETOH) < 10 mg/dL
--- NOTE | 2023-01-27 15:07 | PC.NURSE ---
Pt reports difficulty urinating because of my kidneys. Per provider Fabiana see if patient is willing to allow a straight cath for assessment. Pt denies straight cath at this time. Provider aware.
[2023-01-27] MEDS: ONDANSETRON 4 MG/2 ML INJ IV (16:36)
[2023-01-27] MEDS: LABETALOL 20 MG/4 ML SYRINGE 10 MG IV (16:36)
== END 2023-01-27 17:20 | disposition home or self-care (01) ==
PROVIDERS: Emergency Provider Emergency Medicine; PCP Internal Medicine
DX: R55 Syncope and collapse (principal); R07.9 Chest pain, unspecified
CPT/HCPCS: 36415; 70450; 71045; 80053; 80320; 82550; 83690; 83735; 84484; 85025; 85610; 85730; 93005; 96361; 96374; 96375; 99284; J2405

== ENCOUNTER → 2023-01-30 15:48 | Outpatient (CLI) | payer MEDICARE, OTHER, SELFPAY ==
[2023-01-30 17:35] LABS: Creatinine Urine Random 83.4 mg/dL; Protein (Total) Urine Random 17 mg/dL (0-12)
[2023-02-01 08:09] LABS: Parathyroid Hormone Int 34 pg/mL (15-65)
== END ==
PROVIDERS: Referring Provider Student in an Organized Health Care Education/Training Program; Visit Provider Student in an Organized Health Care Education/Training Program
DX: N25.81 Secondary hyperparathyroidism of renal origin (principal); R80.9 Proteinuria, unspecified
CPT/HCPCS: 36415; 82570; 83970; 84156